=== PATIENT | female | born 1985 | race Two or more races ===

== ENCOUNTER 2025-02-22 19:26 | Emergency (ER) | payer MEDICAID ==
[~2025-02-22] VITALS: Ht 162.6 cm; Wt 99.7 kg
[~2025-02-22 19:26] MED LIST: CEPH250C PO; PREN-96 OR
--- NOTE | 2025-02-22 19:49 | ED.PDOC ---
History of Present Illness HPI Comments 39 y/o obese F presents with c/c of numbness and discoloration to 5th digit of right hand, with associated limited range of motion, x1 hour. Denies any recent injuries or strenuous activities. Denies any further acute symptoms. Chief Complaint: Upper Extremity Time Seen by MD: 19:35 Primary Care Provider: DANNIE Anderson Notes: Nurses Notes, Medications, Allergies Allergies: Coded Allergies: NO KNOWN ALLERGIES (Unverified , 01/06/11) Home Meds Reported Medications Cephalexin (KEFLEX CAPSULE) 250 Mg Cp, 500 MG PO Q6HR 10/17/13 Vit W/ Ferrous Fumara ( One Daily) Daily Tab, 1 OR QAM 01/06/11 Information Source: Patient Mode of Arrival: Ambulatory Severity: Moderate Timing: Minutes Duration: Since onset Prehospital treatment: None Past Medical History PAST MEDICAL HISTORY: Anxiety, Depression, HTN, PUD, UTI'S Surgical History: Cholecystectomy, , Tubal Ligation OFFICE SUPPORT History: No Pertinent OFFICE SUPPORT History Family History Family History: No family hx of Cancer, No family hx of DM, No family hx of HTN Social History Smoker: Cigarettes Alcohol: Rarely Drugs: Marijuana Lives In: Home All Other Systems: Reviewed and Negative (As per HPI) Physical Exam General Appearance: No Apparent Distress, Obese HEENT: Pharynx Normal Neck: Full Range of Motion, Non-Tender Respiratory: Lungs Clear, No Respiratory Distress, Normal Breath Sounds Cardiovascular: No Murmur, Normal Peripheral Pulses, Regular Rate/Rhythm Breast Exam: Deferred Gastrointestinal: Non Tender, Soft Genitalia: Deferred Pelvic: Deferred Rectal: Deferred Extremities: Normal capillary refill, Normal range of motion Musculoskeletal : Location: Left Extremity Location: Little Finger (TENDERNESS OVER DISTAL PHALANGES TRACE EDEMA STRENGTH SENSORY MOTION INTACT CAP REFILL LESS THAN 3 SECONDS) Apperance: Normal Neurologic: Alert, No Motor Deficits, Normal Affect, Normal Mood, No Sensory Deficits Cerebellar Function: Normal Skin: Dry, Normal Color, Warm Lymphatic: No Adenopathy Was a procedure done? Was a procedure done?: No Differential Dx Considerations may include: fractures, dislocations, contusions, sprain, musculoskeletal pain, neurovascular injuries, among others X-Ray, Labs, Meds, VS Vital Signs Date Time Temp Pulse Resp B/P (MAP) Pulse Ox O2 Delivery O2 Flow Rate FiO2 02/22/25 20:18 98.2 78 18 140/97 (111) 100 98.2 02/22/25 19:33 97.9 77 26 148/93 100 97.9 X-Ray, Labs, Meds, VS Comment INDINGS/IMPRESSION: Bony structures appear intact normal alignment. Special attention to the left 5th digit shows no findings of fracture or foreign bodies. Slight narrowing of the distal interphalangeal joint of the left 5th digit is noted. ADVISED ON RICE, [id number] NSAIDS. FOLLOW UP WITH YOUR PCP IN 2-3 DAYS NECESSARY CONSIDER FURTHER IMAGING IF SYMPTOMS PERSIST. Images Reviewed?: Images reviewed and evaluated by me Time of 1ST Reevaluation: 19:35 Reevaluation 1ST: Unchanged Time of 2ND Reevaluation: 20:20 Reevaluation 2ND: Improved Patient Education/Counseling: Diagnosis, Treatment, Need For Follow Up Family Education/Counseling: No Family Present SEPSIS Sepsis Screen Date sepsis recognized/suspect: Feb 22, 2025 Time Sepsis recognized/suspect: 1935 Recent Procedure: No On Antibiotic Therapy: No Respiratory Rate >20: No Heart Rate >90: No Temp<36 C (96.8 F) or >38.3 C: No SBP <90 or MAP <65 mmHG: No New Acute Mental Status Change: No Is the patient on CPAP, BIPAP,: No Physician Orders L Hand 3v Xray (02/22/25 19:44) Vital Signs Date Time Temp Pulse Resp B/P (MAP) Pulse Ox O2 Delivery O2 Flow Rate FiO2 02/22/25 20:18 98.2 78 18 140/97 (111) 100 98.2 02/22/25 19:33 97.9 77 26 148/93 100 97.9 Departure 1 Departure Time of Disposition: 20:19 Impression: Primary Impression: Sprain, finger Disposition: 01 HOME / SELF CARE / HOMELESS Condition: Stable Discharged With: Self Critical Care Note Critical Care Time?: No Stability Stability form required: No Heart Score Heart Score: Heart Score Response (Comments) Value History N/A 0 EKG N/A 0 Age N/A 0 Risk Factors N/A 0 Troponin N/A 0 Total 0 I personally scribed for ER ([email or web address]) on 02/22/25 at 19:49. Electronically submitted by Tejas Ronquillo [email or web address]). ER Feb 22, 2025 19:49 NAVEEN SILVESTRE [facility] Feb 22, 2025 20:20
--- NOTE | 2025-02-22 20:04 | DVH ---
CLINICAL INDICATION: 5th digit pain TECHNIQUE: 3 radiographic views of the left hand were obtained. Comparison: None FINDINGS/IMPRESSION: Bony structures appear intact normal alignment. Special attention to the left 5th digit shows no findings of fracture or foreign bodies. Slight narrowing of the distal interphalangeal joint of the left 5th digit is noted.
[2025-02-22 20:18] VITALS: BP 140/97; TEMP 98.2
[2025-02-22] MEDS ORDERED: AUG875T PO (20:26)
[2025-02-22] MEDS: cefTRIAXone SOD 1,000 MG VL IM ONE (20:52)
[2025-02-22] MEDS: KETOROLAC TROMETH 60MG/2ML VIAL IM ONE (20:52)
[2025-02-22 20:56] VITALS: PULSE 78; RESP 19; O2SAT 100
== END 2025-02-22 20:59 | disposition home or self-care (01) ==
LOC: ER 19:26
DX: S63.619A Unspecified sprain of unspecified finger, initial encounter (principal); I10 Essential (primary) hypertension; F17.210 Nicotine dependence, cigarettes, uncomplicated; Z90.49 Acquired absence of other specified parts of digestive tract; Z98.51 Tubal ligation status; Z79.899 Other long term (current) drug therapy; X58.XXXA Exposure to other specified factors, initial encounter; Y93.89 Activity, other specified; Y92.89 Other specified places as the place of occurrence of the external cause; Y99.8 Other external cause status
CPT/HCPCS: 73130; 96372; 99283; J0696